=== PATIENT | male | born 1955 | race Caucasian/White ===

== ENCOUNTER 2016-08-09 11:14 | Day surgery (SDC) | payer OTHER ==
[~2016-08-09] VITALS: Ht 177.8 cm; Wt 144.7 kg
[2016-08-09 11:59] VITALS: Ht 177.8 cm; Wt 144.7 kg
[2016-08-09] MEDS ORDERED: BENA10TA48 PO (12:14)
[2016-08-09] MEDS ORDERED: FURO20TA3 PO (12:14)
[2016-08-09] MEDS ORDERED: METF-480 PO (12:14)
[2016-08-09 12:58] VITALS: BP 171/95; PULSE 76; RESP 21
[2016-08-09] MEDS ORDERED: LIDOCAINE 100 MG SYRINGE ONE (14:01)
[2016-08-09] MEDS ORDERED: PROPOFOL 40 ML ONE (14:01)
[2016-08-09 14:03] VITALS: BP 131/63; PULSE 72; RESP 14
--- NOTE | 2016-08-09 15:55 | GILP ---
DATE OF PROCEDURE: 08/09/2016 PREOPERATIVE DIAGNOSIS: Screening colonoscopy. POSTOPERATIVE DIAGNOSIS: Normal colon except for grade I to II internal hemorrhoids. ANESTHESIA: Dr. Wilson Because of his medical condition, anesthesia was requested. DESCRIPTION OF PROCEDURE: The patient was put in left lateral decubitus after obtaining informed co nsent, was sedated, monitored by the anesthesiologist. Very carefully advanced Olympus video colonoscope all the way to cecum. Appendiceal opening and ile ocecal valve were identified. Cecum, ascending colon, transverse colon, descending colon, sigmoid c olon, and rectum including retroflexion normal except for internal hemorrhoids, grade I. Upon remov al of scope, the patient had no complication. Somewhat decreased sphincter tone was also noted duri ng rectal exam. Plan will be to advise him to follow up with Dr. Whitehead and repeat colonoscopy in 10 years. Dictated By: PATRIZIA GREENFIELD/RC Conf#: [id number] DID#: [id number] CC: CHANTEL MAHONEY MD; DORIS WHITEHEAD M.D.; PATRIZIA COE M.D.;*EndCC*
== END 2016-08-09 14:16 | disposition home or self-care (01) ==
LOC: GIL 11:14
PROVIDERS: ATTEND Internal Medicine
DX: Z12.11 Encounter for screening for malignant neoplasm of colon (principal); K64.1 Second degree hemorrhoids; E11.9 Type 2 diabetes mellitus without complications; I10 Essential (primary) hypertension; E66.01 Morbid (severe) obesity due to excess calories; Z68.42 Body mass index [BMI] 45.0-49.9, adult
CPT/HCPCS: 45378; 82962; J2001; Z7610